=== PATIENT | female | born 1995 | race Two or more races ===

== ENCOUNTER 2017-08-25 13:34 | Emergency (ER) | payer OTHER ==
[~2017-08-25] VITALS: Ht 157.5 cm; Wt 69.4 kg
[2017-08-25] MEDS ORDERED: IBUPROFEN600 MG ORAL (15:09)
[2017-08-25 15:24] VITALS: BP 122/78
--- NOTE | 2017-08-25 20:48 | Emergency Room Report ---
History of Present Illness General Chief Complaint: Lower Extremity Injury Source: Patient Present Illness HPI The patient is a 22-year-old female presenting for left ankle pain. She states that she was walking down the stairs yesterday and felt the left ankle buckled underneath her. She denies falling. Pain is an 8/10 dull ache and does not radiate. Worse with movement. She denies any other injury or symptoms Allergies: Coded Allergies: TRAZODONE (Verified Allergy, Unknown, 08/25/17) Patient History Past Medical History: see triage record Pertinent Family History: none Last Menstrual Period: 08/04/17 Now: No : 0 Para: 0 Reviewed Nursing Documentation: PMH: Agreed, PSxH: Agreed Nursing Documentation-PMH Past Medical History: No Stated History Review of Systems All Other Systems: negative except mentioned in HPI Physical Exam Vital Signs Date Time Temp Pulse Resp B/P (MAP) Pulse Ox O2 Delivery O2 Flow Rate FiO2 08/25/17 13:54 98.1 69 20 122/78 100 Room Air Sp02 EP Interpretation: reviewed, normal General Appearance: no apparent distress, alert, GCS 15, non-toxic Head: normocephalic, atraumatic Eyes: bilateral eye normal inspection, bilateral eye PERRL ENT: hearing grossly normal, normal pharynx, no angioedema, normal voice Neck: full range of motion, supple/symm/no masses Musculoskeletal: normal range of motion, swelling - minimal L ankle, tender - lateral mal Neurologic: alert, oriented x3, responsive, motor strength/tone normal, sensory intact, speech normal Psychiatric: judgement/insight normal, memory normal, mood/affect normal, no suicidal/homicidal ideation Skin: normal color, no rash, warm/dry, well hydrated Lymphatic: no adenopathy Procedures Splinting Splinting : Consent: Verbal Location: L ankle Pre-Made Type: ALTHEA wrap Pre-Proc Neuro Vasc Exam: normal Post-Proc Neuro Vasc Exam: normal Patient Tolerated: Well Complications: None Medical Decision Making PA Attestation Dr. Moreau is my supervising physician. Patient management was discussed with my supervising physician Diagnostic Impression: Primary Impression: Left ankle sprain Qualified Codes: S93.402A - Sprain of unspecified ligament of left ankle, initial encounter ER Course The patient is a 22-year-old female presenting for left ankle pain Ddx considered include but not limited to sprain/strain, fracture, contusion Physical exam: Vitals within normal limits. No apparent distress Left ankle: There is tenderness to palpation and edema over the left lateral malleolus. Full active range of motion. Sensation intact to light touch. X-ray of the left ankle is unremarkable Left ankle placed in ALTHEA wrap and the patient is provided crutches. ER precautions are given. Patient given prescription for Motrin and will follow up with primary care physician. Other X-Ray Diagnostic Results Other X-Ray Diagnostic Results : X-Ray ordered: L ankle # of Views/Limited Vs Complete: 3 View Indication: Pain EP Interpretation: Yes Interpretation: no dislocation, no soft tissue swelling, no fractures Impression: No acute disease Electronically Signed by: LOLITA Whitmore Scribe Text I have reviewed the xray with my supervising physician and interpretation is that there are no fractures, dislocations or soft tissue swelling. Last Vital Signs Date Time Temp Pulse Resp B/P (MAP) Pulse Ox O2 Delivery O2 Flow Rate FiO2 08/25/17 15:24 98.1 78 20 122/78 100 Room Air Status: improved Disposition: HOME, SELF-CARE Condition: Improved Scripts Ibuprofen* (MOTRIN*) 600 Mg Tablet 600 MG ORAL Q8H Y for For Pain, #30 TAB 0 Refills Prov: MITZY CUMMINS 08/25/17 Patient Instructions: Ankle Sprain Additional Instructions: I discussed my findings with the patient. All questions and concerns have been answered. Treatment and medication compliance have been addressed. I advised the patient that they need to follow up with PMD in 3-5 days. Return to ED if pain remains or worsens, numbness or tingling occurs, new rash is noticed, fever is noticed, or if needed for any reason. Patient verbalized understanding of discharge instructions. MITZY CUMMINS Aug 25, 2017 20:48
--- NOTE | 2017-08-26 11:10 | Diagnostic Imaging Report ---
Indication: Left ankle pain Technique: XRAY ANKLE MIN 3VWS LEFT Comparison: None Findings: There is no acute fracture or dislocation. Bone mineralization is normal. Soft tissues are grossly unremarkable. Impression: No acute osseous abnormality.
== END 2017-08-25 15:24 | disposition home or self-care (01) ==
LOC: EMR 14:28
DX: S93.402A Sprain of unspecified ligament of left ankle, initial encounter (principal); X50.1XXA Overexertion from prolonged static or awkward postures, initial encounter; Y92.099 Unspecified place in other non-institutional residence as the place of occurrence of the external cause
CPT/HCPCS: 99283

== ENCOUNTER 2017-09-01 14:03 | Emergency (ER) | payer OTHER ==
[~2017-09-01] VITALS: Ht 162.6 cm; Wt 68.0 kg
[~2017-09-01 14:03] MED LIST: IBUPROFEN600 MG ORAL
[2017-09-01 14:20] VITALS: BP 124/81
[2017-09-01 15:01] VITALS: BP 124/81
--- NOTE | 2017-09-01 15:34 | Diagnostic Imaging Report ---
Indication: pain Findings: 3 views of the right hand were obtained. Normal bony mineralization and alignment are demonstrated. No acute fractures, erosions, or periosteal reaction are seen. Soft tissues are unremarkable. Impression: No acute findings.
--- NOTE | 2017-09-01 16:30 | Emergency Room Report ---
History of Present Illness General Chief Complaint: Upper Extremity Injury Source: Patient Present Illness HPI The patient is a 22-year-old female presenting for right index finger pain after her trunk lid fell on it today. Pain is an 8/10 throbbing sensation and does not radiate. Worse with touch and movement. She is also presenting for continued left ankle pain after he sprained one week prior. Pain has decreased and is now 5/10 dull ache. Worse with movement and walking. She has been using her crutches and has not been bearing any weight on it. She denies any other symptoms Allergies: Coded Allergies: TRAZODONE (Verified Allergy, Unknown, 08/25/17) Patient History Past Medical History: see triage record Pertinent Family History: none Reviewed Nursing Documentation: PMH: Agreed, PSxH: Agreed Nursing Documentation-PMH Past Medical History: No Stated History Review of Systems All Other Systems: negative except mentioned in HPI Physical Exam Vital Signs Date Time Temp Pulse Resp B/P (MAP) Pulse Ox O2 Delivery O2 Flow Rate FiO2 09/01/17 14:10 97.9 84 20 124/81 99 Room Air Sp02 EP Interpretation: reviewed, normal General Appearance: no apparent distress, alert, GCS 15, non-toxic Head: normocephalic, atraumatic Eyes: bilateral eye normal inspection, bilateral eye PERRL ENT: hearing grossly normal, normal pharynx, no angioedema, normal voice Musculoskeletal: normal range of motion, swelling - Mild L lateral ankle, tender - TTP over the R 2nd DIPJ Neurologic: alert, oriented x3, responsive, motor strength/tone normal, sensory intact, speech normal Psychiatric: judgement/insight normal, memory normal, mood/affect normal, no suicidal/homicidal ideation Skin: normal color, no rash, warm/dry, well hydrated Procedures Splinting Splinting #1: Consent: Verbal Location: R index Pre-Made Type: metal Pre-Proc Neuro Vasc Exam: normal Post-Proc Neuro Vasc Exam: normal Patient Tolerated: Well Complications: None Splinting #2: Consent: Verbal Location: L ankle Pre-Made Type: SANYA wrap Pre-Proc Neuro Vasc Exam: normal Post-Proc Neuro Vasc Exam: normal Patient Tolerated: Well Complications: None Medical Decision Making PA Attestation Dr. Rice is my supervising physician. Patient management was discussed with my supervising physician Diagnostic Impression: Primary Impression: Sprain of ankle Qualified Codes: S93.402D - Sprain of unspecified ligament of left ankle, subsequent encounter Additional Impression: Finger contusion Qualified Codes: S60.021A - Contusion of right index finger without damage to nail, initial encounter ER Course The patient is a 22-year-old female presenting for right finger pain and left ankle sprain Ddx considered include but not limited to sprain/strain, fracture, contusion Physical exam: There is tender to palpation over the right index finger DIP joint. Full active range of motion. Superficial abrasion. Sensation is intact. No subungual hematoma. no ecchymosis. Left ankle: There is mild edema to the lateral region as well as tenderness to palpation. Full active range of motion intact but with pain. Right hand x-ray is unremarkable. Finger splint is placed Left ankle was rewrapped with Sanya wrap and the patient will continue to use RICE techniques at home. ER precautions given Other X-Ray Diagnostic Results Other X-Ray Diagnostic Results : X-Ray ordered: R hand # of Views/Limited Vs Complete: 3 View Indication: Pain EP Interpretation: Yes Interpretation: no dislocation, no soft tissue swelling, no fractures Impression: No acute disease Electronically Signed by: LOLITA Whitmore Scribe Text I have reviewed the xray with my supervising physician and interpretation is that there are no fractures, dislocations or soft tissue swelling. Last Vital Signs Date Time Temp Pulse Resp B/P (MAP) Pulse Ox O2 Delivery O2 Flow Rate FiO2 09/01/17 15:01 97.9 20 124/81 99 Room Air 09/01/17 14:10 84 Status: improved Disposition: HOME, SELF-CARE Condition: Improved Referrals: [facility] (PCP) Departure Forms: Return to Work Return to Work Date: Sep 04, 2017 Work Restrictions: No Prolonged Standing Other Restrictions: Limited standing/walking Return to Full Activity: Sep 07, 2017 Patient Instructions: Ankle Sprain, Contusion, RICE for Routine Care of Injuries Additional Instructions: I discussed my findings with the patient. All questions and concerns have been answered. Treatment and medication compliance have been addressed. I advised the patient that they need to follow up with their primary doctor. Return to ED if pain remains or worsens, numbness or tingling occurs, new rash is noticed, fever is noticed, or if needed for any reason. Patient verbalized understanding of discharge instructions. MITZY CUMMINS Sep 01, 2017 16:30
== END 2017-09-01 15:03 | disposition home or self-care (01) ==
LOC: EMR 15:00
DX: S93.402A Sprain of unspecified ligament of left ankle, initial encounter (principal); S60.021A Contusion of right index finger without damage to nail, initial encounter; W20.8XXA Other cause of strike by thrown, projected or falling object, initial encounter; Y92.89 Other specified places as the place of occurrence of the external cause
CPT/HCPCS: 29130; 29540; 99284